=== PATIENT | male | born 1960 | race Caucasian/White ===

== ENCOUNTER 2019-03-22 11:20 | Outpatient (CLI) | payer BC ==
--- NOTE | 2019-03-22 13:12 | RAD ---
2 VIEW CHEST: Date: 03/22/19 INDICATION: Bronchitis. COMPARISON: Films from 2004. FINDINGS: Elevated left hemidiaphragm is more pronounced today. There are gas-filled loops of colon and stomach under this left hemidiaphragm. The lungs appear clear. Heart size is mildly prominent, but appears stable. Vascular markings within normal range. Osseous structures unremarkable. IMPRESSION: Elevated left hemidiaphragm concerning for left hemidiaphragm paralysis. No acute lung process. POS: OFF
== END 2019-03-22 11:21 | disposition home or self-care (01) ==
LOC: BICRAD 11:20
PROVIDERS: ATTEND Family Medicine
DX: J40 Bronchitis, not specified as acute or chronic (principal); J98.6 Disorders of diaphragm
CPT/HCPCS: 71046

== ENCOUNTER 2022-01-08 23:54 | Emergency (ER) | payer BC ==
[2022-01-09 00:33] LABS: #Basophils 0.1 thou/uL (0.0-0.2); #Eosinphils 0.4 thou/uL (0.0-0.7); #Lymphocytes 2.8 thou/uL (1.20-3.40); #Monocytes 0.9 thou/uL (0.11-0.59); #Neutrophils 4.4 thou/uL (1.40-6.50); %Basophils 1.3 % (0.0-1.0); %Eosinophils 5.2 % (0.0-10.0); %Lymphocytes 32.1 % (21.0-51.0); %Neutrophils 51.5 % (42.0-75.0); Hemoglobin 17.2 g/dL (14.0-18.0); Mean Corpuscular HGB CONC 33.5 g/dL (32.0-36.0); Mean Corpuscular Volume 95.6 fL (78.0-98.0); Mean Platelet Volume 6.8 fL (7.4-10.4); Platelet Count 183 thou/uL (130-400); RBC Distribution Width 11.8 % (11.5-14.5); Red Blood Cell (RBC) Count 5.39 mill/uL (4.70-6.10); White Blood Cell (WBC) Count 8.6 thou/uL (4.8-10.8)
[2022-01-09 00:53] LABS: ALT (SGPT) 21 U/L (8-55); AST (SGOT) 26 U/L (5-34); Albumin 4.4 g/dL (3.5-5.0); Alkaline Phosphatase 52 U/L (40-110); Anion Gap 15 mmol/L (10-20); BUN (Urea Nitrogen) 17 mg/dL (8.4-25.7); Bilirubin, Total 1.4 mg/dL (0.2-1.2); Calc. Creatinine Clearance 0 mL/min (70-130); Calcium 9.2 mg/dL (7.8-10.44); Carbon Dioxide 25 mmol/L (22-29); Chloride 103 mmol/L (98-107); Estimated GFR 77; Globulin 2.8 g/dL (2.4-3.5); Glucose 120 mg/dL (70-105); Protein, Total 7.2 g/dL (6.0-8.3); Sodium 139 mmol/L (136-145)
[2022-01-09] MEDS ORDERED: Morphine 4 MG/ML VIAL ONE (01:00)
[2022-01-09] MEDS ORDERED: Ondansetron PF 4 MG/2 ML Vial ONE (01:00)
[2022-01-09 02:44] LABS: Bilirubin Negative (Negative); Blood, Urine Negative (Negative); Clarity Clear (Clear); Glucose, Urine (Dipstick) Normal (Negative); Ketone, Urine Negative (Negative); Leukocyte Negative Leu/uL (Negative); Nitrite Negative (Negative); Protein, Urine (Dipstick) Negative (Neg-Trace); Specific Gravity, Urine 1.019 (1.002-1.036); Urobilinogen Normal mg/dL (Less than 2); pH, Urine 6.5 (5.0-9.0)
[2022-01-09 03:37] LABS: Troponin I Less than 0.010 ng/mL (< 0.028)
[2022-01-09] MEDS ORDERED: Famotidine 20 MG TAB ONE (04:18)
[2022-01-09] MEDS ORDERED: Iopamidol 370 76% 100 ML VIAL ONE (08:00)
== END 2022-01-09 04:33 | disposition home or self-care (01) ==
LOC: ERS 23:54
DX: R07.81 Pleurodynia (principal); R10.12 Left upper quadrant pain
CPT/HCPCS: 36415; 71045; 71275; 74177; 80053; 81003; 83690; 84484; 85025; 93005; 96374; 96375; J2270; J2405; Q9967

== ENCOUNTER 2024-07-03 23:37 | Observation (INO) | payer BC ==
[2024-07-03 23:58] LABS: #Basophils 0.08 10x3/uL (0.0-0.2); %Basophils 0.8 % (0.0-1.0); %Eosinophils 5.8 % (0.0-10.0); %Lymphocytes 42.8 % (21.0-51.0); %Neutrophils 42.2 % (42.0-75.0); Hematocrit 47.1 % (42.0-52.0); Hemoglobin 16.4 g/dL (14.0-18.0); Mean Corpuscular HGB CONC 34.8 g/dL (32.0-36.0); Mean Corpuscular Hemoglobin 30.9 pg (27.0-31.0); Mean Corpuscular Volume 88.9 fL (78.0-98.0); Mean Platelet Volume 9.5 fL (7.4-10.4); Platelet Count 179 10x3/uL (130-400)
[2024-07-04] MEDS ORDERED: Aspirin Chewable 81 MG TAB ONE
[2024-07-04 00:18] LABS: ALT (SGPT) 29 U/L (8-55); AST (SGOT) 29 U/L (5-34); Albumin 3.9 g/dL (3.4-4.8); Alkaline Phosphatase 51 U/L (40-110); Anion Gap 13 mmol/L (10-20); BUN (Urea Nitrogen) 14 mg/dL (8.4-25.7); Bilirubin, Total 0.8 mg/dL (0.2-1.2); Calc. Creatinine Clearance 0 mL/min (70-130); Calcium 8.7 mg/dL (7.8-10.44); Carbon Dioxide 28 mmol/L (23-31); Chloride 105 mmol/L (98-107); Estimated GFR 88; Glucose 118 mg/dL (80-115); Potassium 3.8 mmol/L (3.5-5.1); Protein, Total 6.9 g/dL (5.8-8.1); Sodium 142 mmol/L (136-145)
[2024-07-04 00:23] LABS: Troponin I 0.017 ng/mL (< 0.028)
[2024-07-04] MEDS ORDERED: Nitroglycerin 0.4 MG TAB 1 EACH ONE (00:51)
[2024-07-04] MEDS ORDERED: Ketorolac Tromethamine 30 MG (1 mL) VIAL ONE (00:59)
[2024-07-04] MEDS ORDERED: Ondansetron PF 4 MG/2 ML Vial ONE (01:03)
[2024-07-04] MEDS ORDERED: NOREPINEPHRINE 8 MG/250 ML-D5W 250 ML ONE (01:06)
[2024-07-04] MEDS ORDERED: Acetaminophen 325 MG TAB PO PRN (03:56)
[2024-07-04 04:35] LABS: Troponin I 0.011 ng/mL (< 0.028)
[2024-07-04 05:19] VITALS: BMI 28.9
[2024-07-04] MEDS: Ketorolac Tromethamine 30 MG (1 mL) VIAL IVP PRN (05:28)
[2024-07-04] MEDS: Ondansetron PF 4 MG/2 ML Vial IVP PRN (05:29)
[2024-07-04 08:47] LABS: Hemoglobin A1c 5.2 % (4.0-6.0)
[2024-07-04 09:01] LABS: Troponin I 0.014 ng/mL (< 0.028)
[2024-07-04] MEDS ORDERED: Regadenoson 0.4 MG/5 ML SYRINGE ONE (11:53)
[2024-07-04] MEDS ORDERED: Iopamidol-370 76% 500 ML MDV (1 ML CHARGE) ONE (12:43)
[2024-07-04] MEDS: Enoxaparin 40 MG (0.4 mL) SYRINGE SC SCH (15:27)
[2024-07-04] MEDS: Morphine 2 MG/ML VIAL SLOW IVP PRN (16:31)
[2024-07-05 03:58] LABS: #Basophils 0.04 10x3/uL (0.0-0.2); %Basophils 0.4 % (0.0-1.0); %Eosinophils 1.4 % (0.0-10.0); %Lymphocytes 18.2 % (21.0-51.0); %Monocytes 11.1 % (0.0-10.0); %Neutrophils 68.6 % (42.0-75.0); Hematocrit 41.1 % (42.0-52.0); Hemoglobin 14.1 g/dL (14.0-18.0); Mean Corpuscular HGB CONC 34.3 g/dL (32.0-36.0); Mean Corpuscular Hemoglobin 30.8 pg (27.0-31.0); Mean Corpuscular Volume 89.7 fL (78.0-98.0); Mean Platelet Volume 9.9 fL (7.4-10.4); Platelet Count 166 10x3/uL (130-400); RBC Distribution Width 12.5 % (11.5-14.5); Red Blood Cell (RBC) Count 4.58 mill/uL (4.70-6.10)
[2024-07-05 04:17] LABS: Anion Gap 11 mmol/L (10-20); BUN (Urea Nitrogen) 14 mg/dL (8.4-25.7); Calc. Creatinine Clearance 117 mL/min (70-130); Calcium 8.4 mg/dL (7.8-10.44); Carbon Dioxide 22 mmol/L (23-31); Chloride 110 mmol/L (98-107); Estimated GFR 98; Glucose 132 mg/dL (80-115); Potassium 3.8 mmol/L (3.5-5.1); Sodium 139 mmol/L (136-145)
[2024-07-05 11:33] VITALS: BP 122/73; TEMP 98.6
[2024-07-05] MEDS ORDERED: Ipratropium/Albuterol 3 ML NEB NEB PRN (12:25)
[2024-07-05] MEDS: Ipratropium/Albuterol 3 ML NEB NEB SCH (13:44)
[2024-07-05] MEDS: guaiFENesin ER 600 MG TAB PO SCH (14:04)
[2024-07-05] MEDS ORDERED: guaiFENesin ER 600 MG TAB PO SCH (21:00)
== END 2024-07-05 15:00 | disposition home or self-care (01) ==
LOC: ERS 23:37 → PCU 07-04 03:42
PROVIDERS: ADMIT Internal Medicine; ATTEND Family Medicine
PROC: B246ZZZ Ultrasonography of Right and Left Heart (ICD-10-PCS; principal; 2024-07-05)
DX: R07.1 Chest pain on breathing (principal); R55 Syncope and collapse; I44.1 Atrioventricular block, second degree; K21.9 Gastro-esophageal reflux disease without esophagitis; J45.909 Unspecified asthma, uncomplicated; I95.9 Hypotension, unspecified; Z88.1 Allergy status to other antibiotic agents; Z98.890 Other specified postprocedural states; Z79.899 Other long term (current) drug therapy
CPT/HCPCS: 36415; 71045; 71275; 78451; 80048; 80053; 80061; 83036; 84484; 85025; 93005; 93306; 94760; 96361; 96365; 96375; 96376; A9502; G0378; J1650; J1885; J2272; J2405; J2785; J7620; Q9967